=== PATIENT | female | born 1955 | race Caucasian/White ===

== ENCOUNTER 2017-03-09 13:43 | Inpatient (IN) | payer MEDICAID, OTHER ==
[~2017-03-09] VITALS: Ht 160 cm; Wt 59.9 kg
--- NOTE | 2017-03-09 13:43 | NUR ---
PT RECEIVED FROM HOME C/O BACK PAIN X2 DAYS. NO SOB NOTED AT THIS TIME. VSS NAD A/OX3 ABLE TO MAKE NEEDS KNOWN. WILL CONTINUE TO MONITOR FOR ANY CHANGES DURING THE SHIFT
--- NOTE | 2017-03-09 14:51 | NUR ---
PT OFF TO CT SCAN
--- NOTE | 2017-03-09 15:24 | NUR ---
LAB ATTEMPTING BLOOD DRAW
[2017-03-09 16:30] LABS: APPEARANCE,URINE Clear (CLEAR); BILIRUBIN,URINE Negative (NEGATIVE); BLOOD, URINE Moderate Ery/uL (NEGATIVE); COLOR,URINE Yellow (YELLOW); KETONES,URINE Negative (NEGATIVE); LEUKOCYTE ESTERASE ,URINE Negative (NEGATIVE); NITRITE, URINE Negative (NEGATIVE); PROTEIN,URINE 100 mg/dl (NEGATIVE); UGLUCOSE Negative (NEGATIVE); UROBILINOGEN,URINE 0.2 EU/dL (0.2)
[2017-03-09 16:32] LABS: BACTERIA,URINE Rare /HPF (None Seen); SQUAMOUS EPITHELIAL CELL,UR Few /HPF (None Seen); WBC,URINE 0-2 /HPF (0-3)
--- NOTE | 2017-03-09 16:44 | NUR ---
CALLED NURSING SUP. FOR MS BED
[2017-03-09] MEDS ORDERED: CLON1TAB4 PO (17:00)
[2017-03-09] MEDS ORDERED: SEVE800T7 PO (17:00)
[2017-03-09] MEDS ORDERED: OMEP20CA10 PO (17:00)
[2017-03-09] MEDS ORDERED: METH10TA2 PO (17:00)
[2017-03-09] MEDS ORDERED: FOLI0.8T23 PO (17:01)
[2017-03-09 17:06] LABS: INR 0.98 (0.85-1.15)
[2017-03-09 17:09] LABS: CARBON DIOXIDE 27 mmol/L (21-32); CHLORIDE 96 mmol/L (98-107); CREATININE 6.2 mg/dL (0.6-1.3); GLUCOSE 113 mg/dL (74-106); POTASSIUM 3.6 mmol/L (3.5-5.1); SODIUM SERUM 134 mmol/L (136-145); UREA NITROGEN, BLOOD 38 mg/dL (7-18)
[2017-03-09 17:11] LABS: TROPONIN I < 0.017 ng/mL (0.00-0.056)
[2017-03-09 17:15] LABS: ALANINE AMINOTRANSFERASE < 6 U/L (12-78); ALKALINE PHOSPHATASE 167 U/L (46-116); ASPARTATE AMINOTRANSFERASE 16 U/L (15-37); BILIRUBIN,DIRECT 0.1 mg/dL (0.0-0.2); BILIRUBIN,TOTAL 0.3 mg/dL (0.2-1.0)
[2017-03-09 17:59] LABS: BASOPHILS % (AUTO) 0.4 % (0.0-2.0); EOSINOPHILS % (AUTO) 0.2 % (0.0-6.0); HEMATOCRIT 21 % (33-45); HEMOGLOBIN 7.2 g/dL (11.5-14.8); LYMPHOCYTES # (AUTO) 3.1 /CMM (0.8-4.8); LYMPHOCYTES % (AUTO) 58.7 % (20.0-44.0); MEAN CORPUSCULAR HEMOGLOBIN 30 PG (26.0-33.0); MEAN CORPUSCULAR HGB CONC 34 g/dl (31.0-36.0); MEAN CORPUSCULAR VOLUME 90 fL (82-100); MONOCYTES % (AUTO) 37.5 % (2.0-12.0); NEUTROPHILS # (AUTO) 0.2 /CMM (1.8-8.9); NEUTROPHILS % (AUTO) 3.2 % (43.0-81.0); PLATELET COUNT (AUTO) 453 /CMM (150-450); RDW COEFFICIENT OF VARIATION 13.6 (11.5-15.0); RED BLOOD CELL COUNT(AUTO) 2.36 MIL/uL (4.0-5.2); WHITE BLOOD COUNT (AUTO) 5.4 K/uL (4.3-11.0)
[2017-03-09] MEDS ORDERED: HYDROMORPHONE INJ 2 MG/ML DISP.SYRIN IV ONE (18:00)
[2017-03-09] MEDS ORDERED: ONDANSETRON HCL/PF 4 MG/2 ML VIAL IVP ONE (18:00)
[2017-03-09] MEDS ORDERED: HYDROMORPHONE 1 MG/1 ML DISP.SYRIN ONE (18:04)
[2017-03-09] MEDS ORDERED: ONDANSETRON HCL/PF 4 MG/2 ML VIAL ONE (18:04)
--- NOTE | 2017-03-09 18:16 | NUR ---
REORT GIVEN TO EDILIA
--- NOTE | 2017-03-09 19:03 | NUR ---
EPIC PAGED, PROFESSOR OF SPECIAL EDUCATION
--- NOTE | 2017-03-09 19:13 | NUR ---
REPORT WAS GIVEN TO DANO HERNANDEZ FOR DANIEL
--- NOTE | 2017-03-09 19:15 | NUR ---
PATIENT WAS TRANSPORTED TO [facility] BED BY EMT WITHOUT INCIDENT
[2017-03-09 19:30] VITALS: BP 109/71
--- NOTE | 2017-03-09 19:30 | NUR ---
MS RN ADMITTING NOTES: ADMITTED A 62 YO FEMALE PATIENT WHO WAS BROUGHT TO ER DUE TO INTRACTABLE LOWER BACK PAIN, WHICH PER PATIENT HAS BEEN FOR 4 DAYS ALREADY, NOW AT ITS WORST. PATIENT WAS BROUGHT TO MS FLOOR VIA BRAULIORJV, AOX4, ON O2 AT 2 LPM VIA NC, BREATHING EVEN AND UNLABORED, BREATH SOUNDS CLEAR TO AUSCULTATION. PATIENT IS IN PAIN, CRYING, SCALES LOWER BACK PAIN AT 10/10, CRAMPING IN QUALITY. PATIENT HAS R UPPER CHEST PERMACATH WITH CLEAN AND INTACT DRESSING. PER PATIENT, LAST HD WAS DONE 03/06, AND HER USUAL HD SCHEDULE IS , AND SAT. PIV OVER ELIAS G 20 INTACT AND PATENT TO FLUSH. ADMITTING CARE DONE. PROVIDED FOR COMFORT AND SAFETY. BED IN LOWEST AND LOCKED POSITION SIDERAILS UP X 3, CALL LIGHT WITHIN REACH. WILL CONT TO MONITOR.
[2017-03-09 19:34] LABS: LYMPHOCYTES % (MANUAL) 69 % (16-48); MONOCYTES % (MANUAL) 24 % (0-11.0); NEUTROPHILS % (MANUAL) 7 (42-76)
[2017-03-09] MEDS ORDERED: MORPHINE SULFATE INJ 2 MG/ML DISP.SYRIN IV PRN (20:00)
--- NOTE | 2017-03-09 20:00 | NUR ---
RN NOTES: CALLED DR NAVARRO FOR ADMITTING ORDERS, AND FOR PAIN MEDS ORDERS. DR NAVARRO CALLED BACK, ORDERS FOR PAIN MEDS AND DIET GIVEN. NOTED AND CARRIED OUT.
[2017-03-09] MEDS ORDERED: MORPHINE SULFATE INJ 4 MG/ML DISP.SYRIN ONE ×2 (20:02→23:57)
[2017-03-09] MEDS: MORPHINE SULFATE INJ 4 MG/ML DISP.SYRIN IV PRN (20:10)
--- NOTE | 2017-03-09 20:15 | NUR ---
RN NOTES: PATIENT C/O SEVERE PAIN AT LUMBAR AREA SCALED AT 10/10, STATING IT FEELS CRAMPING. ADMINISTERED MORPHINE 4 MG IV PRN. WILL CONT TO MONITOR.
[2017-03-09] MEDS ORDERED: HYDROCODONE/APAP 5/325MG 1 EACH TABLET PO PRN (21:00)
[2017-03-09] MEDS ORDERED: MAGNESIUM HYDROXIDE 30 ML UDC PO PRN (21:00)
[2017-03-09] MEDS ORDERED: ONDANSETRON HCL/PF 4 MG/2 ML VIAL IVP PRN (21:00)
[2017-03-09] MEDS ORDERED: Z GUARD REMEDY 2 OZ OINT TP PRN (21:00)
[2017-03-09] MEDS ORDERED: MAG HYDROX/AL HYDROX/SIMETH 30 ML UDC PO PRN (21:00)
[2017-03-09] MEDS ORDERED: ACETAMINOPHEN 325 MG TABLET PO PRN (21:00)
[2017-03-09] MEDS ORDERED: clonazePAM 1 MG TABLET PO PRN (21:00)
[2017-03-09] MEDS ORDERED: ZOLPIDEM TARTRATE 5 MG TABLET PO PRN (21:00)
[2017-03-09] MEDS ORDERED: HYDROCODONE/APAP 5/325MG 1 EACH TABLET ONE (22:47)
[2017-03-09] MEDS: HYDROCODONE/APAP 5/325MG 1 EACH TABLET PO PRN (22:49)
--- NOTE | 2017-03-09 22:58 | NUR ---
RN NOTES: PATIENT STILL C/O 7/10 PAIN OVER LOWER BACK. ADMINISTERED NORCO 5-325 MG PO. POSITIONED FOR COMFORT. WILL CONT TO MONITOR.
[2017-03-10] MEDS: MORPHINE SULFATE INJ 4 MG/ML DISP.SYRIN IV PRN ×3 (00:27→10:19)
--- NOTE | 2017-03-10 00:57 | NUR ---
RN NOTES: PATIENT STATES THAT HER PIV OVER ELIAS FEELS PAINFUL WHEN BEING FLUSHED, HOWEVER, NO REDNESS, WARMTH, SWELLING OR LEAKAGE NOTED AROUND IV SITE, FLUSHES EASILY. NEW PIV INSERTED OVER LFA G24.
[2017-03-10] MEDS ORDERED: MAGNESIUM HYDROXIDE 30 ML UDC ONE (01:16)
--- NOTE | 2017-03-10 02:40 | NUR ---
RN NOTES: PER PATIENT, SHE HAS NOT HAD A BM X 3 DAYS, REQUESTED MOM FOR CONSTIPATION. ADMINISTERED MOM.
[2017-03-10 04:00] VITALS: BP 101/67
[2017-03-10] MEDS ORDERED: MORPHINE SULFATE INJ 4 MG/ML DISP.SYRIN ONE (04:15)
--- NOTE | 2017-03-10 04:32 | NUR ---
RN NOTES: PATIENT COMPLAINED OF 9/10 PAIN OVER LOWER BACK. ADMINISTERED MORPHINE 4 MG IV PRN. VS STABLE. GENTLE MORNING CARE RENDERED TO PATIENT. PATIENT TOLERATED WELL.
--- NOTE | 2017-03-10 06:44 | NUR ---
MS RN CLOSING NOTES: PATIENT IN BED, AOX4, ON O2 AT 2 LPM VIA NC, BREATHING EVEN AND UNLABORED. PATIENT STILL COMPLAINING OF LOWER BACK PAIN NOW SCALED AT 7/10. PIV OVER LFA G 24 INTACT AND PATENT TO FLUSH. DUE MEDS GIVEN. PROVIDED FOR COMFORT AND SAFETY. MORNING CARE RENDERED. BED IN LOWEST AND LOCKED POSITION SIDERAILS UP X 3, CALL LIGHT WITHIN REACH. WILL ENDORSE TO AM RN FOR DANIEL.
--- NOTE | 2017-03-10 07:35 | NUR ---
MS RN NOTES PATIENT IN BED, AWAKE. A/O X4. ON OXYGEN AT 2L VIA NC SATING 98%, NO SOB. RIGHT CHEST WALL PERMA CATH INTACT, DIALYSIS TREATMENT STARTED, DIALYSIS NURSE AT THE BEDSIDE. CALL LIGHT WITHIN REACH. WILL CONT TO MONITOR.
[2017-03-10 08:00] VITALS: BP 114/64
[2017-03-10] MEDS ORDERED: SEVELAMER CARBONATE 800 MG TABLET PO SCH (08:00)
[2017-03-10 09:30] LABS: CALCIUM, SERUM 8.6 mg/dL (8.5-10.1); CREATININE 5.6 mg/dL (0.6-1.3); PHOSPHORUS 4.3 mg/dL (2.5-4.9); POTASSIUM 4.2 mmol/L (3.5-5.1)
[2017-03-10] MEDS: SENNOSIDES/DOCUSATE SODIUM 1 TAB TABLET PO SCH (09:43)
[2017-03-10] MEDS: POLYETHYLENE GLYCOL 3350 17 GM POWD.PACK PO SCH ×2 (09:43→20:59)
[2017-03-10] MEDS: VIT B CMPLX 3/FA/VIT C/BIOTIN 1 TAB TABLET PO SCH (09:44)
[2017-03-10 09:58] LABS: MAGNESIUM 1.9 mg/dL (1.8-2.4)
[2017-03-10 10:12] LABS: HEMATOCRIT 21 % (33-45); HEMOGLOBIN 7.3 g/dL (11.5-14.8); MEAN CORPUSCULAR HEMOGLOBIN 30 PG (26.0-33.0); MEAN CORPUSCULAR HGB CONC 34 g/dl (31.0-36.0); MEAN CORPUSCULAR VOLUME 88 fL (82-100); PLATELET COUNT (AUTO) 419 /CMM (150-450); RDW COEFFICIENT OF VARIATION 13.8 (11.5-15.0); RED BLOOD CELL COUNT(AUTO) 2.41 MIL/uL (4.0-5.2); WHITE BLOOD COUNT (AUTO) 3.3 K/uL (4.3-11.0)
--- NOTE | 2017-03-10 10:25 | NUR ---
DIALYSIS TREATMENT DONE, PATIENT TOLERATED WELL BP 137/75 P107 WITH 500ML FLUID OUTPUT PER SONDRA, DIALYSIS NURSE.
[2017-03-10 11:56] LABS: LYMPHOCYTES % (MANUAL) 83 % (16-48); MONOCYTES % (MANUAL) 15 % (0-11.0); NEUTROPHILS % (MANUAL) 2 (42-76)
--- NOTE | 2017-03-10 12:38 | NUR ---
LOW HGB 7.3 WILL GIVE EPOGEN NEXT HD PER DR. GARCIA. WILL COLLECT STOOL SAMPLE FOR STOOL OB ORDERED.
[2017-03-10] MEDS: HYDROCODONE/APAP 5/325MG 1 EACH TABLET PO PRN (13:30)
[2017-03-10] MEDS: SEVELAMER CARBONATE 0.8 GM POWD.PACK PO SCH ×2 (13:30→17:48)
[2017-03-10] MEDS ORDERED: SEVELAMER CARBONATE 0.8 GM POWD.PACK PO SCH (13:30)
[2017-03-10 15:54] VITALS: BP 90/63
--- NOTE | 2017-03-10 16:18 | NUR ---
ELEVATED TEMP 101.7 P120 LACTIC ACID 2.2 YESTERDAY, BLOOD CULTURE PENDING, COOLING MEASURES RENDERED. NOTIFIED DR. SMITH, WILL START ANTIBIOTIC PER . TYLENOL 650MG PO PRN GIVEN.
[2017-03-10 16:28] VITALS: BP 90/63
[2017-03-10] MEDS ORDERED: FEE PK DOSING 1 MIN EA MC ONE (16:28)
[2017-03-10] MEDS ORDERED: VANCOMYCIN 500 MG in IV D5W 100 ML IV PRN (16:30)
[2017-03-10] MEDS ORDERED: VANCOMYCIN 1 GM in IV D5W 250 ML IV ONE (17:00)
--- NOTE | 2017-03-10 18:21 | NUR ---
MS RN NOTES PATIENT IN BED, A/O X4. CURRENT TEMP 98.3 STAT LACTIC RESULT PENDING. STARTED ON ANTIBIOTIC IV ORDERED. POST DIALYSIS TREATMENT TODAY, RIGHT UPPER CHEST WALL PERMA CATH INTACT, NO BLEEDING NOTED. ABLE TO MANAGE LOWER BACK PAIN WITH NORCO PRN AND MORPHINE IV PRN, MADE COMFORTABLE IN BED. NO BOWEL MOVEMENT AT THIS TIME. FOR STOOL OB ORDERED. CALL LIGHT WITHIN REACH. WILL ENDORSE TO ONCOMING RN.
[2017-03-10] MEDS: PIPERACILLIN /TAZOBACTAM 2.25 G in IV D5W 50 ML IV SCH (18:39)
--- NOTE | 2017-03-10 19:30 | NUR ---
RN NOTES RECEIVED PATIENT IN BED AWAKE, AO X 3, ABLE TO MAKE NEEDS KNOWN. NO ACUTE DISTRESS NOTED. MONITORED FOR PAIN. IV SITE PATENT, INTACT; FLUSHED. SAFETY REMINDERS GIVEN. ON LOW BED WITH BILATERAL UPPER SIDE RAILS UP. CALL VITAL WITHIN EASY REACH. WILL CONTINUE TO MONITOR.
[2017-03-10 20:00] VITALS: BP 86/50
--- NOTE | 2017-03-10 21:00 | NUR ---
RN NOTES DR. NAVARRO MADE AWARE OF PATIENT'S BP 86/50, 89/32; PATIENT ASYMPTOMATIC. PER DR. NAVARRO, MONITOR PATIENT; DON'T GIVE NARCOTICS AT THIS TIME IF BP IS LOW.
[2017-03-11] MEDS: PIPERACILLIN /TAZOBACTAM 2.25 G in IV D5W 50 ML IV SCH ×3 (00:42→20:16)
[2017-03-11] MEDS: MORPHINE SULFATE INJ 4 MG/ML DISP.SYRIN IV PRN (02:54)
[2017-03-11 04:00] VITALS: BP 94/58
--- NOTE | 2017-03-11 06:15 | NUR ---
RN NOTES PATIENT ASLEEP, EASILY AROUSABLE. RESPIRATIONS EVEN. NO SIGNS OF PAIN NOTED. DUE MEDS GIVEN WITH NO ASE NOTED. NEEDS ATTENDED. BP IMPROVED 122/71. SAFETY PRECAUTIONS AND COMFORT MEASURES IN PLACE. WILL GIVE REPORT TO DAY SHIFT FOR CONTINUITY OF CARE.
[2017-03-11 07:12] LABS: CALCIUM, SERUM 8.6 mg/dL (8.5-10.1); CREATININE 4.8 mg/dL (0.6-1.3); POTASSIUM 4.8 mmol/L (3.5-5.1)
[2017-03-11 07:20] LABS: BASOPHILS # (AUTO) 0.1 /CMM (0.0-0.2); BASOPHILS % (AUTO) 1.1 % (0.0-2.0); HEMATOCRIT 24 % (33-45); HEMOGLOBIN 7.6 g/dL (11.5-14.8); LYMPHOCYTES # (AUTO) 3.4 /CMM (0.8-4.8); LYMPHOCYTES % (AUTO) 59.2 % (20.0-44.0); MEAN CORPUSCULAR HEMOGLOBIN 29 PG (26.0-33.0); MEAN CORPUSCULAR HGB CONC 32 g/dl (31.0-36.0); MEAN CORPUSCULAR VOLUME 92 fL (82-100); MONOCYTES # (AUTO) 1.8 /CMM (0.1-1.30); MONOCYTES % (AUTO) 32.1 % (2.0-12.0); NEUTROPHILS # (AUTO) 0.4 /CMM (1.8-8.9); NEUTROPHILS % (AUTO) 7.6 % (43.0-81.0); PLATELET COUNT (AUTO) 383 /CMM (150-450); RDW COEFFICIENT OF VARIATION 14.5 (11.5-15.0); RED BLOOD CELL COUNT(AUTO) 2.62 MIL/uL (4.0-5.2); WHITE BLOOD COUNT (AUTO) 5.7 K/uL (4.3-11.0)
--- NOTE | 2017-03-11 07:20 | NUR ---
MS RN OPENING NOTES RECEIVED PT FROM NIGHTSHIFT NURSE IN STABLE CONDITION. PT IS A/O X3. NO SOB NOTED. PT COMPLAINS OF ABDOMINAL PAIN RELATED TO CONSTIPATION. PER NIGHTSHIFT NURSE PT WAS GIVEN MIRALAX AND PRUNE JUICE BUT UNABLE TO HAVE A BM. WILL MAKE MD AWARE. RIGHT UPPER CHEST WALL PERMACATH NOTED. DRESSING CLEAN AND INTACT. IV NOTED TO BE PATENT TO NS FLUSH AND INTACT. NO REDNESS OR SIGNS OF INFILTRATION NOTED. BED IN LOW LOCKED POSITION, SIDE RAILS UP X2, CALL LIGHT WITHIN REACH. WILL CONTINUE TO MONITOR
[2017-03-11 08:16] VITALS: BP 86/53
[2017-03-11] MEDS: SENNOSIDES/DOCUSATE SODIUM 1 TAB TABLET PO SCH (08:37)
[2017-03-11] MEDS: VIT B CMPLX 3/FA/VIT C/BIOTIN 1 TAB TABLET PO SCH (08:37)
[2017-03-11] MEDS: SEVELAMER CARBONATE 0.8 GM POWD.PACK PO SCH ×3 (08:38→17:19)
[2017-03-11] MEDS ORDERED: MINERAL OIL 133 ML (PYXIS) 1 EA ENEMA RC ONE (10:30)
[2017-03-11] MEDS: METHADONE HCL 10 MG TABLET PO SCH ×2 (11:00→15:30)
[2017-03-11 11:01] LABS: BAND % (MANUAL) 1 % (0.0-5.0); LYMPHOCYTES % (MANUAL) 68 % (16-48); MONOCYTES % (MANUAL) 21 % (0-11.0); NEUTROPHILS % (MANUAL) 10 (42-76)
--- NOTE | 2017-03-11 11:54 | NUR ---
MS RN NOTES DR. GIRON CONTACTED IN REGARDS TO PAIN CONSULTATION ORDERED BY SR. SMITH. DR. GIRON STATES THAT HE WILL COME TO SEE THE PT.
--- NOTE | 2017-03-11 12:48 | NUR ---
MS RN NOTES PT REFUSED 1100 METHADONE. STATES "I AM TOO CONSTIPATED AND DON'T NEED IT RIGHT NOW". WILL CONTINUE TO MONITOR PAIN. FLEET ENEMA WAS GIVEN PER MD ORDER TO AID WITH CONSTIPATION. PT WAS ALSO GIVEN WARMED PRUNE [id number] ALONG WITH A STOOL SOFTER THIS MORNING. WILL CONTINUE TO MONITOR
--- NOTE | 2017-03-11 15:32 | NUR ---
MS RN NOTES PT DID NOT WANT 0900 METHADONE DUE TO CONSTIPATION. HOWEVER SHE IS ASKING TO RECEIVE NOW THE PAIN IS "ALMOST UNBEARABLE" ACCORDING TO HER AND THE OTHER PAIN MEDICATIONS WILL NOT BE EFFECTIVE. PHARMACY NOTIFIED AND GAVE APPROVAL TO ADMINISTER DOSE.
[2017-03-11 16:00] VITALS: BP 98/65
--- NOTE | 2017-03-11 18:17 | NUR ---
MS RN CLOSING NOTES PT REMAINS STABLE. ALL NEEDS MET DURING SHIFT AND ORDERS CARRIED OUT ACCORDINGLY. ALL DUE MEDS GIVEN. PT STATES HER BACK PAIN IS MANAGEABLE AT THIS TIME AFTER METHADONE ADMINISTRATION. SAFETY MEASURES REMAIN IN PLACE. WILL ENDORSE TO NIGHTSHIFT NURSE FOR DANIEL
--- NOTE | 2017-03-11 19:25 | NUR ---
MS RN OPENING NOTES: RECEIVED PT AND IS ASLEEP IN BED AT THIS TIME. PT ON 2LPM VIA NC. BED ALARM ACTIVATED. CALL LIGHT WITHIN PT'S REACH. BED KEPT IN LOW, LOCKED POSITION, AND SIDE RAILS X 2UP. WILL CONTINUE TO MONITOR PT.
[2017-03-11 20:00] VITALS: BP 93/59
[2017-03-11] MEDS: POLYETHYLENE GLYCOL 3350 17 GM POWD.PACK PO SCH (21:12)
[2017-03-12 01:00] VITALS: BP 91/63
--- NOTE | 2017-03-12 01:00 | NUR ---
MS RN NOTES: PT COMPLAINING OF 7/10 LOWER BACK PAIN. BP WAS 91/63 HR 76. LEGS ELEVATED AFTER MEDICATION GIVEN. WILL CONTINUE TO MONITOR PT.
[2017-03-12] MEDS: HYDROCODONE/APAP 5/325MG 1 EACH TABLET PO PRN (01:08)
--- NOTE | 2017-03-12 06:14 | NUR ---
MS RN CLOSING NOTES: ALL NEEDS WERE ATTENDED AND ANTICIPATED FOR. PT IS ASLEEP IN BED WITH LEGS ELEVATED. PT ON 2LPM VIA NC AND IS TOLERATING WELL. PT KEPT CLEAN, DRY, AND COMFORTABLE. PT HAS IV ON RIGHT UPPER ARM 20G AND IS PATENT AND INTACT. HAS BEEN FLUSHED. PT ALSO HAS IV ON LEFT FOREARM 24G AND IS PATENT AND INTACT. BOTH IV'S ARE SALINE LOCK. PT ALSO HAS RIGHT UPPER CHEST WALL PERMA CATH AND IS INTACT. CALL LIGHT WITHIN PT'S REACH. BED KEPT IN LOW, LOCKED POSITON, AND SIDE RAILS X 2 UP. WILL ENDORSE TO AM NURSE FOR DANIEL.
[2017-03-12 06:17] VITALS: BP 84/67
[2017-03-12 06:36] LABS: BASOPHILS % (AUTO) 0.2 % (0.0-2.0); EOSINOPHILS % (AUTO) 0.4 % (0.0-6.0); HEMATOCRIT 25 % (33-45); HEMOGLOBIN 8.1 g/dL (11.5-14.8); LYMPHOCYTES # (AUTO) 3.5 /CMM (0.8-4.8); LYMPHOCYTES % (AUTO) 56.6 % (20.0-44.0); MEAN CORPUSCULAR HEMOGLOBIN 30 PG (26.0-33.0); MEAN CORPUSCULAR HGB CONC 32 g/dl (31.0-36.0); MEAN CORPUSCULAR VOLUME 92 fL (82-100); MONOCYTES # (AUTO) 1.1 /CMM (0.1-1.30); MONOCYTES % (AUTO) 17.1 % (2.0-12.0); NEUTROPHILS # (AUTO) 1.6 /CMM (1.8-8.9); NEUTROPHILS % (AUTO) 25.7 % (43.0-81.0); PLATELET COUNT (AUTO) 395 /CMM (150-450); RED BLOOD CELL COUNT(AUTO) 2.75 MIL/uL (4.0-5.2); WHITE BLOOD COUNT (AUTO) 6.2 K/uL (4.3-11.0)
[2017-03-12 06:48] LABS: CREATININE 5.4 mg/dL (0.6-1.3); MAGNESIUM 1.8 mg/dL (1.8-2.4); PHOSPHORUS 3.9 mg/dL (2.5-4.9); POTASSIUM 4.5 mmol/L (3.5-5.1)
--- NOTE | 2017-03-12 07:15 | NUR ---
MS RN OPENING NOTES RECEIVED PT FROM NIGHTSHIFT NURSE IN STABLE CONDITION. PT IS A/O X3. NO SOB NOTED. PT COMPLAINS OF ABDOMINAL PAIN RELATED TO CONSTIPATION. WILL MAKE MD AWARE. RIGHT UPPER CHEST WALL PERMACATH NOTED. DRESSING CLEAN AND INTACT. IV NOTED TO BE PATENT TO NS FLUSH AND INTACT. NO REDNESS OR SIGNS OF INFILTRATION NOTED. BED IN LOW LOCKED POSITION, SIDE RAILS UP X2, CALL LIGHT WITHIN REACH. WILL CONTINUE TO MONITOR
[2017-03-12 07:33] LABS: BAND % (MANUAL) 3 % (0.0-5.0); LYMPHOCYTES % (MANUAL) 55 % (16-48); MONOCYTES % (MANUAL) 21 % (0-11.0); NEUTROPHILS % (MANUAL) 21 (42-76)
[2017-03-12] MEDS: PIPERACILLIN /TAZOBACTAM 2.25 G in IV D5W 50 ML IV SCH ×2 (08:26→21:19)
[2017-03-12] MEDS: SENNOSIDES/DOCUSATE SODIUM 1 TAB TABLET PO SCH (08:27)
[2017-03-12] MEDS: VIT B CMPLX 3/FA/VIT C/BIOTIN 1 TAB TABLET PO SCH (08:27)
[2017-03-12] MEDS: SEVELAMER CARBONATE 0.8 GM POWD.PACK PO SCH ×3 (08:27→17:05)
[2017-03-12 08:31] VITALS: BP 90/56
--- NOTE | 2017-03-12 10:13 | NUR ---
MS RN NOTES DR GIRON CONTACTED IN REGARDS TO PAIN CONSULT AND WHEN HE WILL SEE. THE PATIENT. WHEN ASKED IF HE WILL BE SEEING HER TODAY, HE STATED "YES, WILL BE THERE SOON". WILL CONTINUE TO MANAGE PAIN AND AWAIT FOR MD'S ARRIVAL
[2017-03-12] MEDS ORDERED: LACTULOSE 10 G/15 ML UDC (PYXIS) PR ONE (13:00)
--- NOTE | 2017-03-12 13:48 | NUR ---
MS RN NOTES PT REFUSED 0900 METHADONE AND STATED THAT SHE PREFERS TO RECEIVE AFTER DIALYSIS IT WILL BE WASHED OUT DURING. PHARMACY WAS ALERTED AND STATED THAT IT MAY BE GIVEN AFTER HER DIALYSIS. PT CURRENTLY RECEIVING DIALYSIS. WILL ADMINISTER MEDICATION POST.
[2017-03-12] MEDS ORDERED: EPOETIN ALFA (10,000 UNIT) 10,000 UNIT/ML VIAL SQ ONE (15:00)
[2017-03-12] MEDS: METHADONE HCL 10 MG TABLET PO SCH (16:03)
[2017-03-12 16:05] VITALS: BP 101/59
--- NOTE | 2017-03-12 16:36 | NUR ---
MS RN NOTES PT WAS SEEN AND ASSESSED BY DR. GIRON. HE DECREASED HER METHADONE FROM 110MG TO 90 AND ADDED GABAPENTIN. WILL ADMINISTER METHADONE AND CONTINUE TO MONITOR PAIN
--- NOTE | 2017-03-12 17:43 | NUR ---
MS RN NOTES PT WAS ABLE TO HAVE A LARGE SOFT BUT FORMED BROWN BM. OB STOOL SAMPLE TAKEN AND SENT TO LAB
--- NOTE | 2017-03-12 18:52 | NUR ---
MS RN CLOSING NOTES: ALL NEEDS WERE ATTENDED AND ANTICIPATED FOR. PT REMAINS ON 2LPM VIA NC AND IS TOLERATING WELL. ALL DUE MEDS GIVEN. PT KEPT CLEAN, DRY, AND COMFORTABLE. CALL LIGHT WITHIN PT'S REACH. BED KEPT IN LOW, LOCKED POSITION, AND SIDE RAILS X 2 UP. WILL ENDORSE TO AM NURSE FOR DANIEL.
--- NOTE | 2017-03-12 19:44 | NUR ---
RN NOTE; RECEIVED PT IN BED AWAKE AND ALERT. BREATHING EVENLY. NO SOB. NAD. SKIN WARM AND DRY. REPORTED NO PAIN IF REMAIN INACTIVE. NO COMPLICATION S/O HD NOTED. HD CATH INTACT. ASSISTED W/ DIAPER CHANGE. NEEDS MET. CALL LIGHT WITHIN REACH. WILL CONT TO MONITOR.
[2017-03-12 20:00] VITALS: BP 89/59
[2017-03-12] MEDS: POLYETHYLENE GLYCOL 3350 17 GM POWD.PACK PO SCH (21:19)
[2017-03-12] MEDS ORDERED: GABAPENTIN 100 MG CAPSULE PO SCH (22:00)
--- NOTE | 2017-03-13 06:33 | NUR ---
RN NOTE; PT IN BED SLEEPING. BREATHING EVENLY. NO SOB. NO ACUTE EVENT DURING THE NIGHT. NO C/O BACKACHE. NO COMPLICATIONS S/P HD. CONSTIPATION RESOLVED. ASSISTED W/ ADLS. CLEANED AND DRIED. CALL LIGHT WITHIN REACH. WILL CONT TO MONITOR AND WILL ENDORSE TO AM SHIFT FOR DANIEL ..
--- NOTE | 2017-03-13 07:44 | NUR ---
MS RN OPENING NOTE PATIENT IS ALERT AND ORIENTED x4. NO PAIN AT THIS TIME. NO SOB OR DISTRESS NOTED. CALL LIGHT WITHIN REACH. SAFETY MEASURES IMPLEMENTED. BED LOCKED IN LOWEST POSITION. ABLE TO COMMUNICATE NEEDS. 2L/MIN OF OXYGEN VIA NASAL CANNULA. ELIAS AND LFA IV INTACT AND PATENT NO REDNESS OR SWELLING NOTED. RCW HD CATH INTACT AND PATENT NO REDNESS OR SWELLING, DRESSING INTACT AND DRY. POSSIBLE D/C PLANNING WITH HOME HEALTH WILL FOLLOW UP WITH CASE MANAGEMENT. AWAITING LABS THIS MORNING. WILL CONTINUE TO MONITOR THROUGHOUT SHIFT
[2017-03-13 08:00] VITALS: BP 95/57
[2017-03-13] MEDS: SEVELAMER CARBONATE 0.8 GM POWD.PACK PO SCH (08:54)
[2017-03-13] MEDS: VIT B CMPLX 3/FA/VIT C/BIOTIN 1 TAB TABLET PO SCH (08:54)
[2017-03-13] MEDS: SENNOSIDES/DOCUSATE SODIUM 1 TAB TABLET PO SCH (08:54)
[2017-03-13] MEDS: PIPERACILLIN /TAZOBACTAM 2.25 G in IV D5W 50 ML IV SCH (08:54)
[2017-03-13] MEDS: METHADONE HCL 10 MG TABLET PO SCH (08:55)
--- NOTE | 2017-03-13 12:36 | NUR ---
MS NUCLEAR MEDICINE TECHNICIAN NOTE PATIENT IS ALERT AND ORIENTED x4. NO PAIN AT THIS TIME. NO SOB OR DISTRESS NOTED. CALL LIGHT WITHIN REACH AT ALL TIMES. SAFETY MEASURES IMPLEMENTED. ABLE TO COMMUNICATE NEEDS. IV REMOVED ON LEFT FOREARM AND RIGHT UPPER ARM, SKIN INTACT NO SKIN ISSUES PRESENT. HAS RIGHT CHEST WALL HD CATH INTACT, KEPT CLEAN AND DRY. ALL BELONGINGS ACCOUNTED FOR UPON DISCHARGE WITH , ALL NURSING INSTRUCTIONS GIVEN TO PATIENT, PATIENT ABLE TO VERBALIZE UNDERSTANDING AND TEACHING. RECEIVED TEACH BACK INSTRUCTIONS. LEFT TO HOME WITH HOME HEALTH WITH AND BROTHER IN LAW VIA PRIVATE CAR.
== END 2017-03-13 12:30 | disposition home or self-care (01) | DRG 347 ==
LOC: ER 13:44 → MEDSG2 17:54
PROVIDERS: ADMIT Family Medicine; ATTEND Family Medicine
PROC: 5A1D70Z Performance of Urinary Filtration, Intermittent, Less than 6 Hours Per Day (ICD-10-PCS; principal; 2017-03-10)
PROC: 5A1D70Z Performance of Urinary Filtration, Intermittent, Less than 6 Hours Per Day (ICD-10-PCS; 2017-03-12)
DX: M48.00 Spinal stenosis, site unspecified (principal); E43 Unspecified severe protein-calorie malnutrition; E87.2 Acidosis; I12.0 Hypertensive chronic kidney disease with stage 5 chronic kidney disease or end stage renal disease; N18.6 End stage renal disease; E87.1 Hypo-osmolality and hyponatremia; F11.20 Opioid dependence, uncomplicated; Z99.2 Dependence on renal dialysis; Z96.659 Presence of unspecified artificial knee joint; Z82.49 Family history of ischemic heart disease and other diseases of the circulatory system; M19.90 Unspecified osteoarthritis, unspecified site; Z79.899 Other long term (current) drug therapy; G89.4 Chronic pain syndrome; E78.5 Hyperlipidemia, unspecified; D63.8 Anemia in other chronic diseases classified elsewhere; E87.70 Fluid overload, unspecified; K59.00 Constipation, unspecified; K21.9 Gastro-esophageal reflux disease without esophagitis; B19.20 Unspecified viral hepatitis C without hepatic coma; M85.9 Disorder of bone density and structure, unspecified; T40.2X5A Adverse effect of other opioids, initial encounter; Y92.009 Unspecified place in unspecified non-institutional (private) residence as the place of occurrence of the external cause; F17.200 Nicotine dependence, unspecified, uncomplicated
CPT/HCPCS: 36415; 71045-TC; 72131-TC; 80048-TC; 80076-TC; 80202-TC; 81000-TC; 82728-TC; 83540-TC; 83605-TC; 83735-TC; 84100-TC; 84484-TC; 85025-TC; 85730-TC; 87040-TC; 87081-TC; 87086-TC; 90935-TC; A4606; J0885; J1170; J2270; J2405; J2543; J3370; J7050; J7060; Z7610